=== PATIENT | male | born 1960 | race Caucasian/White ===

== ENCOUNTER 2016-06-17 11:42 | Inpatient (IN) | payer OTHER ==
[2016-06-17 12:37] VITALS: BMI 21.1
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
[2016-06-17] MEDS ORDERED: guaiFENesin/D-METHORPHAN HB 10 ML UNIT-DOSE CUPS PO PRN (15:10)
[2016-06-17] MEDS ORDERED: MAGNESIUM HYDROX 2400MG/30ML ORAL SUSPENSION 30 ML CUP PO PRN (15:10)
[2016-06-17] MEDS ORDERED: LOPERAMIDE HCL 2 MG CAPSULE PO PRN (15:10)
[2016-06-17] MEDS ORDERED: MENTHOL/PHENOL 1 EACH UD MM PRN (15:10)
[2016-06-17] MEDS ORDERED: NICOTINE POLACRILEX 4 MG GUM BC PRN (15:10)
[2016-06-17] MEDS ORDERED: P-EPHED 60MG/TRIPROLIDI 2.5MG TABLET PO PRN (15:10)
[2016-06-17] MEDS ORDERED: MAG HYDROX/AL HYDROX/SIMETH 30 ML UNIT-DOSE CUP PO PRN (15:10)
[2016-06-17] MEDS ORDERED: MAGNESIUM CITRATE 300 ML BOTTLE PO PRN (15:10)
[2016-06-17] MEDS ORDERED: IBUPROFEN 400 MG TABLET (FP) PO PRN (15:10)
[2016-06-17] MEDS ORDERED: ACETAMINOPHEN 325 MG TABLET (FP) PO PRN (15:10)
[2016-06-17] MEDS ORDERED: hydrOXYzine PAMOATE 25 MG CAPSULE (FP) PO PRN (15:10)
[2016-06-17] MEDS ORDERED: METHADONE HCL 10 MG TABLET (FOR DETOX USE ONLY) PO ONE ×2 (16:30→23:00)
[2016-06-17] MEDS ORDERED: METHADONE HCL 10 MG TABLET (FOR DETOX USE ONLY) ONE (18:33)
[2016-06-17] MEDS: diazePAM 5 MG TABLET PO PRN (18:34)
[2016-06-17] MEDS: NICOTINE 21 MG/24 HOURS TOPICAL PATCH TD SCH (18:36)
[2016-06-17 19:25] LABS: URINE APPEARANCE CLEAR; URINE BILIRUBIN NEGATIVE (NEGATIVE); URINE BLOOD NEGATIVE (NEGATIVE); URINE COLOR YELLOW; URINE GLUCOSE (UA) NEGATIVE (NEGATIVE); URINE KETONE NEGATIVE (NEGATIVE); URINE LEUK ESTERASE NEGATIVE (NEGATIVE); URINE NITRITE NEGATIVE (NEGATIVE); URINE PROTEIN NEGATIVE (NEGATIVE); URINE UROBILINOGEN NEGATIVE E.U./dl (0.2-1.0)
[2016-06-17] MEDS: THIAMINE HCL 100 MG TABLET (FP) PO SCH (22:29)
--- NOTE | 2016-06-18 09:28 | CONSULT ---
[facility] Psychiatric Consult - Data Date of interview: 06/18/16 Admission source: [facility] Identifying data: This is 55 years old male with history of Paranoid Schizophrenia , history of p[sychiatric hospitalizations intoxicated with: Opioids, Crack, Alcohol, Cannabis and Nicotine Substance Abuse History: - Smoking Cessation. Smoking history: Current every day smoker. Have you smoked in the past 12 months: Yes. Aproximately how many cigarettes per day: 20. Cigars Per Day: 0. Hx Chewing Tobacco Use: No. Initiated information on smoking cessation: Yes. 'Breaking Loose' booklet given : 06/17/16. - Substance & Tx. History. Hx Alcohol Use: Yes (SAYS HE IS NOT DRINKING NOW). Hx Substance Use: Yes (HEROIN/COCAINE/MARIJUANA). - Substances Abused. Crack. Route: Smoking. Frequency: Daily. Amount used: $100. Age of first use: 16. Date of Last Use: 06/16/16. Heroin. Route: Inhalation. Frequency: 1-2 times per week. Amount used: 1 bag. Age of first use: 18. Date of Last Use: 06/16/16. Percocet. Route: Oral. Frequency: Daily. Amount used: 3 tabs. (10-325 mg.). Age of first use: 54. Date of Last Use: Medical History: HepC+, HIV, Weight loss, Liver Cancer history Psychiatric History: Patient reports history of Paranoid Schizophrenia, non- compliance with psychiatric medications with most recent psychiatric admission on 2015 at [facility], reports currently on Monthly injections of Haldol Decanoate 100mg IM WITH LAST INJECTION ON: 05/18/2016 Physical/Sexual Abuse/Trauma History: Denies Additional Comment: Monthly injections of Haldol Decanoate 100mg IM WITH LAST INJECTION ON: 05/18/2016 Mental Status Exam - Mental Status Exam Alert and Oriented to: Person Cognitive Function: Fair Patient Appearance: Unkempt Mood: Suspicious Affect: Constricted Patient Behavior: Cooperative Speech Pattern: Appropriate Voice Loudness: Mildly Soft/Quiet Thought Process: Circumstantial, Goal Oriented Thought Disorder: Being Controlled Hallucinations: Denies Suicidal Ideation: Denies Homicidal Ideation: Denies Insight/Judgement: Fair Sleep: Difficulty falling asleep Appetite: Weight loss Muscle strength/Tone: Normal Gait/Station: Shuffling Additional Comments: Monthly injections of Haldol Decanoate 100mg IM WITH LAST INJECTION ON: 05/18/2016 Psychiatric Findings - Problem List ([place] 1, 2,3) (1) Cannabis dependence, uncomplicated Current Visit: Yes Status: Acute (2) Cocaine dependence, uncomplicated Current Visit: Yes Status: Acute (3) Nicotine dependence Current Visit: Yes Status: Acute Qualifiers: Nicotine product type: cigarettes Substance use status: in withdrawal Qualified Code(s): F17.213 - Nicotine dependence, cigarettes, with withdrawal (4) Opioid dependence with withdrawal Current Visit: Yes Status: Acute (5) Opioid dependence Current Visit: No Status: Acute (6) Other and unspecified alcohol dependence, episodic drinking behavior Current Visit: No Status: Acute (7) Paranoid schizophrenia Current Visit: No Status: Chronic - Initial Treatment Plan Initial Treatment Plan: Haldol decanoate 100mg IM STAT
[2016-06-18] MEDS ORDERED: METHADONE HCL 10 MG TABLET (FOR DETOX USE ONLY) PO ONE (10:00)
[2016-06-18] MEDS ORDERED: HALOPERIDOL DECANOATE 100 MG/ML IM STA (10:30)
[2016-06-18 10:32] LABS: MCH 31.3 pg (25.7-33.7); MCHC 33.4 g/dl (32.0-35.9); MEAN CELL VOLUME 93.7 fl (80-96); MEAN PLT VOLUME 9.1 fl (7.5-11.1); PLATELET COUNT 64 K/MM3 (134-434); RDW 14.6 % (11.9-15.9); WHITE BLOOD COUNT 6.1 K/mm3 (4.0-10.0)
[2016-06-18] MEDS: NICOTINE 21 MG/24 HOURS TOPICAL PATCH TD SCH (10:36)
[2016-06-18] MEDS: PRENATAL VITAMINS W/ FOLIC ACID TABLET (FP) PO SCH (10:36)
[2016-06-18] MEDS: diazePAM 5 MG TABLET PO PRN ×2 (10:38→22:31)
[2016-06-18 10:52] LABS: ALBUMIN 4.1 g/dl (3.4-5.0); ALK PHOS 164 U/L (45-117); ANION GAP 10 (8-16); BILIRUBIN,TOTAL 1.3 mg/dL (0.2-1.0); CALCIUM 9.3 mg/dL (8.5-10.1); CO2 19 mmol/L (21-32); GLUCOSE,RANDOM 94 mg/dL (74-106); SGOT/AST 43 U/L (15-37); SGPT/ALT 38 U/L (12-78)
--- NOTE | 2016-06-18 12:16 | PN ---
BHS COWS - Scale Resting Pulse: 1= NC 81-100 Sweatin=Flushed/Facial Moisture Restless Observation: 1= Difficult to Sit Still Pupil Size: 0= Normal to Room Light Bone or Joint Aches: 2= Severe Diffuse Aches Runny Nose/ Eye Tearin= Nasal Congestion GI Upset > 30mins: 0= None Tremor Observation of Outstretched Hands: 1= Tremor [place], Not Seen Yawning Observation: 2= >3x During Session Anxiety or Irritability: 1=Feels Anxious/Irritable Goose Flesh Skin: 3=Piloerection COWS Score: 14 BHS Progress Note (SOAP) Subjective: sweats interrupted sleep agitation irritable body aches Objective: 06/18/16 12:15 Vital Signs Temperature 98.4 F 06/18/16 09:20 Pulse Rate 89 06/18/16 09:20 Respiratory Rate 16 06/18/16 09:20 Blood Pressure 110/72 06/18/16 09:20 O2 Sat by Pulse Oximetry (%) Laboratory Tests 06/17/16 06/18/16 06/18/16 14:00 06:00 06:00 WBC 6.1 RBC 5.22 Hgb 16.4 D Hct 49.0 D MCV 93.7 MCHC 33.4 RDW 14.6 Plt Count 64 L MPV 9.1 Sodium 139 Potassium 3.6 Chloride 110 H Carbon Dioxide 19 L D Anion Gap 10 BUN 12 D Creatinine 1.0 D Creat Clearance w eGFR > 60 Random Glucose 94 Calcium 9.3 Total Bilirubin 1.3 H D AST 43 H ALT 38 Alkaline Phosphatase 164 H Total Protein 8.0 D Albumin 4.1 D Urine Color Yellow Urine Appearance Clear Urine pH 8.0 D Ur Specific [place] 1.011 Urine Protein Negative Urine Glucose (UA) Negative Urine Ketones Negative Urine Blood Negative Urine Nitrite Negative Urine Bilirubin Negative Urine Urobilinogen Negative Ur Leukocyte Esterase Negative RPR Titer 06/18/16 06:00 WBC RBC Hgb Hct MCV MCHC RDW Plt Count MPV Sodium Potassium Chloride Carbon Dioxide Anion Gap BUN Creatinine Creat Clearance w eGFR Random Glucose Calcium Total Bilirubin AST ALT Alkaline Phosphatase Total Protein Albumin Urine Color Urine Appearance Urine pH Ur Specific [place] Urine Protein Urine Glucose (UA) Urine Ketones Urine Blood Urine Nitrite Urine Bilirubin Urine Urobilinogen Ur Leukocyte Esterase RPR Titer Nonreactive awake/alert ambulating no acute distress Assessment: 06/18/16 12:16 withdrawal sx Plan: continue detox increase fluids motrin/tylenol prn
[2016-06-18] MEDS: EMTRICITAB/RILPIVIRINE/TENOFOV 1 EACH TABLET PO SCH (14:43)
--- NOTE | 2016-06-18 16:18 | EKG ---
Test Reason : Blood Pressure : / mmHG Vent. Rate : 074 BPM Atrial Rate : 074 BPM P-R Int : 158 ms QRS Dur : 086 ms QT Int : 380 ms P-R-T Axes : 059 076 061 degrees QTc Int : 421 ms NORMAL SINUS RHYTHM NORMAL ECG NO PREVIOUS ECGS AVAILABLE Confirmed by MARLIN FRANKS MD ([id number]) on 06/18/2016 4:18:08 PM Referred By: Confirmed By:MARLIN FRANKS MD
[2016-06-18] MEDS: THIAMINE HCL 100 MG TABLET (FP) PO SCH (22:31)
[2016-06-19] MEDS: EMTRICITAB/RILPIVIRINE/TENOFOV 1 EACH TABLET PO SCH (09:10)
[2016-06-19] MEDS ORDERED: METHADONE HCL 5 MG TABLET (FOR DETOX USE ONLY) PO ONE (10:00)
[2016-06-19] MEDS: diazePAM 5 MG TABLET PO PRN (10:30)
[2016-06-19] MEDS: PRENATAL VITAMINS W/ FOLIC ACID TABLET (FP) PO SCH (10:30)
[2016-06-19] MEDS: NICOTINE 21 MG/24 HOURS TOPICAL PATCH TD SCH (10:31)
--- NOTE | 2016-06-19 10:52 | PN ---
BHS COWS - Scale Resting Pulse: 1= NC 81-100 Sweatin=Flushed/Facial Moisture Restless Observation: 1= Difficult to Sit Still Pupil Size: 2= Moderately Dilated Bone or Joint Aches: 1= Mild Discomfort Runny Nose/ Eye Tearin= Runny Nose/Eyes GI Upset > 30mins: 1= Stomach Cramp Tremor Observation of Outstretched Hands: 2= Slight Tremor Visible Yawning Observation: 1= 1-2x During Session Anxiety or Irritability: 2=Irritable/Anxious Goose Flesh Skin: 0=Smooth Skin COWS Score: 15 S Progress Note (SOAP) Objective: 06/19/16 10:51 Vital Signs - 24 hr 06/18/16 06/18/16 06/18/16 13:56 18:23 21:53 Temperature 97.7 F 98.1 F 98.1 F Pulse Rate 92 H 68 98 H Respiratory 18 16 18 Rate Blood Pressure 105/70 95/56 116/73 06/19/16 06/19/16 06/19/16 00:30 03:30 06:00 Temperature 98.2 F Pulse Rate 109 H Respiratory 18 18 18 Rate Blood Pressure 93/60 06/19/16 10:20 Temperature 98 F Pulse Rate 91 H Respiratory 20 Rate Blood Pressure 111/66 Abnormal Lab Results 06/18/16 06:00 Carbon Dioxide 19 L D Total Bilirubin 1.3 H D AST 43 H Alkaline Phosphatase 164 H Laboratory Tests 06/17/16 06/18/16 06/18/16 14:00 06:00 06:00 WBC 6.1 RBC 5.22 Hgb 16.4 D Hct 49.0 D MCV 93.7 MCHC 33.4 RDW 14.6 Plt Count 64 L MPV 9.1 Sodium 139 Potassium 3.6 Chloride 110 H Carbon Dioxide 19 L D Anion Gap 10 BUN 12 D Creatinine 1.0 D Creat Clearance w eGFR > 60 Random Glucose 94 Calcium 9.3 Total Bilirubin 1.3 H D AST 43 H ALT 38 Alkaline Phosphatase 164 H Total Protein 8.0 D Albumin 4.1 D Urine Color Yellow Urine Appearance Clear Urine pH 8.0 D Ur Specific [place] 1.011 Urine Protein Negative Urine Glucose (UA) Negative Urine Ketones Negative Urine Blood Negative Urine Nitrite Negative Urine Bilirubin Negative Urine Urobilinogen Negative Ur Leukocyte Esterase Negative RPR Titer 06/18/16 06:00 WBC RBC Hgb Hct MCV MCHC RDW Plt Count MPV Sodium Potassium Chloride Carbon Dioxide Anion Gap BUN Creatinine Creat Clearance w eGFR Random Glucose Calcium Total Bilirubin AST ALT Alkaline Phosphatase Total Protein Albumin Urine Color Urine Appearance Urine pH Ur Specific [place] Urine Protein Urine Glucose (UA) Urine Ketones Urine Blood Urine Nitrite Urine Bilirubin Urine Urobilinogen Ur Leukocyte Esterase RPR Titer Nonreactive Assessment: 06/19/16 10:52 ONGOING WITHDRAWAL SYMPTOMS Plan: CONTINUE DETOX PROTOCOL
[2016-06-19] MEDS: diphenhydrAMINE HCL 50 MG CAPSULE PO PRN (22:20)
[2016-06-19] MEDS: THIAMINE HCL 100 MG TABLET (FP) PO SCH (22:20)
[2016-06-20] MEDS: EMTRICITAB/RILPIVIRINE/TENOFOV 1 EACH TABLET PO SCH (09:11)
[2016-06-20] MEDS ORDERED: METHADONE HCL 5 MG TABLET (FOR DETOX USE ONLY) PO ONE (10:00)
--- NOTE | 2016-06-20 10:46 | PN ---
BHS Progress Note (SOAP) Subjective: ALERT,IRRITABLE,ANXIOUS,INTERRUPTED SLEEP,PAIN IN THE BODY Objective: 06/20/16 10:45 Vital Signs Temperature 98.1 F 06/20/16 09:50 Pulse Rate 72 06/20/16 09:50 Respiratory Rate 16 06/20/16 09:50 Blood Pressure 122/81 06/20/16 09:50 O2 Sat by Pulse Oximetry (%) Assessment: 06/20/16 10:45 WITHDRAWAL SYMPTOM Plan: CONTINUE DETOX
[2016-06-20] MEDS: PRENATAL VITAMINS W/ FOLIC ACID TABLET (FP) PO SCH (10:53)
[2016-06-20] MEDS: diazePAM 5 MG TABLET PO PRN (10:54)
[2016-06-20] MEDS: NICOTINE 21 MG/24 HOURS TOPICAL PATCH TD SCH (10:54)
[2016-06-20] MEDS: THIAMINE HCL 100 MG TABLET (FP) PO SCH (22:55)
[2016-06-21] MEDS: EMTRICITAB/RILPIVIRINE/TENOFOV 1 EACH TABLET PO SCH (07:25)
[2016-06-21] MEDS ORDERED: METHADONE HCL 10 MG TABLET (FOR DETOX USE ONLY) PO ONE (10:00)
[2016-06-21] MEDS: NICOTINE 21 MG/24 HOURS TOPICAL PATCH TD SCH (10:21)
[2016-06-21] MEDS: PRENATAL VITAMINS W/ FOLIC ACID TABLET (FP) PO SCH (10:36)
--- NOTE | 2016-06-21 11:23 | PN ---
BHS Progress Note (SOAP) Subjective: alert,irritable,anxious,interrupted sleep,pain in the body and back Objective: 06/21/16 11:21 Vital Signs Temperature 96.4 F L 06/21/16 09:26 Pulse Rate 92 H 06/21/16 09:26 Respiratory Rate 18 06/21/16 09:26 Blood Pressure 102/58 06/21/16 09:26 O2 Sat by Pulse Oximetry (%) Assessment: 06/21/16 11:22 withdrawal symptom Plan: continue detox,discharge in am
[2016-06-21] MEDS: diphenhydrAMINE HCL 50 MG CAPSULE PO PRN (22:26)
[2016-06-21] MEDS: THIAMINE HCL 100 MG TABLET (FP) PO SCH (22:26)
[2016-06-22] MEDS ORDERED: METHADONE HCL 5 MG TABLET (FOR DETOX USE ONLY) PO ONE (06:00)
[2016-06-22] MEDS: EMTRICITAB/RILPIVIRINE/TENOFOV 1 EACH TABLET PO SCH (07:22)
--- NOTE | 2016-06-22 07:46 | PN ---
S Progress Note (SOAP) Subjective: ALERT,NO COMPLAINT Objective: 06/22/16 07:44 Vital Signs Temperature 98.1 F 06/22/16 06:33 Pulse Rate 65 06/22/16 06:33 Respiratory Rate 16 06/22/16 06:33 Blood Pressure 95/60 06/22/16 06:33 O2 Sat by Pulse Oximetry (%) Assessment: 06/22/16 07:45 DETOX COMPLETED.NO WITHDRAWAL SYMPTOM Plan: DISCHARGE TODAY,FOLLOW UP WITH AFTER CARE PROGRAM ARRANGEMENT
--- NOTE | 2016-06-22 07:49 | DS ---
[facility] Detox Discharge Summary Admission Date: 06/17/16 Discharge Date: 06/22/16 - History Present History: Cannabis Dependence, Cocaine Dependence, Opioid Dependence Additional Comments: FOLLOW UP WITH AFTER CARE PROGRAM ARRANGEMENT AND PMD FOR MEDICAL PROBLEM Pertinent Past History: NICOTINE DEPENDENCE WEIGHT LOSS CLUBBED FINGERS HIV HEPATITIS C PARANOID SCHIZOPHRENIA - Physical Exam Results Vital Signs: Vital Signs Temperature 98.1 F 06/22/16 06:33 Pulse Rate 65 06/22/16 06:33 Respiratory Rate 16 06/22/16 06:33 Blood Pressure 95/60 06/22/16 06:33 O2 Sat by Pulse Oximetry (%) Pertinent Admission Physical Exam Findings: WITHDRAWAL SYMPTOM - Treatment Hospital Course: Detox Protocol Followed, Detoxed Safely, Responded well, Discharged Condition Good, Rehab Referral Accepted Patient has Accepted a Rehab Referral to: [facility] - Medication Discharge Medications: Ambulatory Orders Emtricitab/Rilpivirine/Tenofov [Complera -] 1 each PO DAILY 01/01/15 Haloperidol Decanoate [Haldol Decanoate 100] 100 mg IM MONTHLY 01/17/15 Cyclobenzaprine HCl [Flexeril -] 10 mg PO Q12H 01/14/16 Gabapentin [Neurontin -] 300 mg PO Q12H 01/14/16 - AMA Did Patient Leave Against Medical Advice: No
[2016-06-22] MEDS: PRENATAL VITAMINS W/ FOLIC ACID TABLET (FP) PO SCH (10:54)
[2016-06-22] MEDS: NICOTINE 21 MG/24 HOURS TOPICAL PATCH TD SCH (10:55)
[2016-06-22 11:20] VITALS: BP 102/63; PULSE 77; TEMP 97.3
== END 2016-06-22 12:39 | disposition home or self-care (01) | DRG 773 ==
LOC: YASAS 11:42 → Y6N 14:18
PROVIDERS: ADMIT Internal Medicine Addiction Medicine; ATTEND Internal Medicine Addiction Medicine
PROC: HZ2ZZZZ Detoxification Services for Substance Abuse Treatment (ICD-10-PCS; principal; 2016-06-17)
DX: F11.23 Opioid dependence with withdrawal (principal); F14.20 Cocaine dependence, uncomplicated; F12.20 Cannabis dependence, uncomplicated; F17.213 Nicotine dependence, cigarettes, with withdrawal; F20.0 Paranoid schizophrenia; B18.2 Chronic viral hepatitis C; Z21 Asymptomatic human immunodeficiency virus [HIV] infection status; R68.3 Clubbing of fingers; Z87.898 Personal history of other specified conditions; Z96.641 Presence of right artificial hip joint; Z85.05 Personal history of malignant neoplasm of liver
CPT/HCPCS: 36415; 80053; 81003; 85027; 86593; 93005; 93010

== ENCOUNTER 2016-06-26 10:53 | Inpatient (IN) | payer OTHER ==
[2016-06-26 11:56] VITALS: BMI 21.2
--- NOTE | 2016-06-26 13:07 | HP ---
[facility] Rehab Assess/Revision - Admission History Admitted to Rehab from: [facility] [place] (COMPLETED DETOX ON 6 06/17/16 TO 06/22/16 ) Date of Admission to Rehab: 06/26/16 - Vital signs Vital Signs: Vital Signs Period Temp Pulse Resp BP Sys/Calix Pulse Ox Last 24 Hr 95.7 F 84 18 115/69 - Findings Detox History & Physical reviewed: Yes Concur with findings: Yes Comments/Additional Findings: PT RETURNED TODAY TO FOLLOW UP WITH REHAB RECOMMENDATION. ALERT O X 3. NO ACUT DISTRESS. PLAN: ADMIT TO REHAB
[2016-06-26] MEDS ORDERED: MENTHOL/PHENOL 1 EACH UD MM PRN (13:08)
[2016-06-26] MEDS ORDERED: diphenhydrAMINE HCL 50 MG CAPSULE PO PRN (13:08)
[2016-06-26] MEDS ORDERED: MAGNESIUM HYDROX 2400MG/30ML ORAL SUSPENSION 30 ML CUP PO PRN (13:08)
[2016-06-26] MEDS ORDERED: NICOTINE POLACRILEX 2 MG GUM BUC PRN (13:08)
[2016-06-26] MEDS ORDERED: P-EPHED 60MG/TRIPROLIDI 2.5MG TABLET PO PRN (13:08)
[2016-06-26] MEDS ORDERED: LOPERAMIDE HCL 2 MG CAPSULE PO PRN (13:08)
[2016-06-26] MEDS ORDERED: MAGNESIUM CITRATE 300 ML BOTTLE PO PRN (13:08)
[2016-06-26] MEDS ORDERED: hydrOXYzine PAMOATE 25 MG CAPSULE (FP) PO PRN (13:08)
[2016-06-26] MEDS ORDERED: MAG HYDROX/AL HYDROX/SIMETH 30 ML UNIT-DOSE CUP PO PRN (13:08)
[2016-06-26] MEDS ORDERED: guaiFENesin/D-METHORPHAN HB 10 ML UNIT-DOSE CUPS PO PRN (13:08)
[2016-06-26] MEDS ORDERED: ACETAMINOPHEN 325 MG TABLET (FP) PO PRN (13:08)
[2016-06-26] MEDS ORDERED: CYCLOBENZAPRINE HCL 10 MG TABLET (FP) PO PRN (13:11)
[2016-06-26] MEDS ORDERED: GABAPENTIN 100 MG CAPSULE (FP) PO SCH (14:19)
[2016-06-26] MEDS ORDERED: GABAPENTIN 300 MG CAPSULE (FP) PO SCH (14:19)
[2016-06-26 16:29] LABS: URINE APPEARANCE SLCLOUDY; URINE BILIRUBIN NEGATIVE (NEGATIVE); URINE BLOOD NEGATIVE (NEGATIVE); URINE COLOR YELLOW; URINE GLUCOSE (UA) NEGATIVE (NEGATIVE); URINE KETONE NEGATIVE (NEGATIVE); URINE NITRITE NEGATIVE (NEGATIVE); URINE PROTEIN NEGATIVE (NEGATIVE); URINE UROBILINOGEN NEGATIVE E.U./dl (0.2-1.0)
[2016-06-26 16:30] LABS: URINE LEUK ESTERASE 1+ (NEGATIVE)
[2016-06-26 16:46] LABS: URINE BACTERIA MANY /hpf (NONE SEEN); URINE RBC 4 /hpf (0-3); URINE WBC 13 /hpf (3-5); YEAST RARE
[2016-06-26] MEDS: NICOTINE 14 MG/24 HOURS TOPICAL PATCH TD SCH (20:18)
[2016-06-26] MEDS: EMTRICITAB/RILPIVIRINE/TENOFOV 1 EACH TABLET PO SCH (20:18)
[2016-06-26] MEDS: THIAMINE HCL 100 MG TABLET (FP) PO SCH (21:54)
[2016-06-26] MEDS: GABAPENTIN 300 MG CAPSULE (FP) PO SCH (22:01)
[2016-06-27] MEDS: EMTRICITAB/RILPIVIRINE/TENOFOV 1 EACH TABLET PO SCH (07:01)
[2016-06-27] MEDS: GABAPENTIN 300 MG CAPSULE (FP) PO SCH ×2 (09:49→22:07)
[2016-06-27] MEDS: PRENATAL VITAMINS W/ FOLIC ACID TABLET (FP) PO SCH (09:50)
[2016-06-27] MEDS: NICOTINE 14 MG/24 HOURS TOPICAL PATCH TD SCH (09:50)
[2016-06-27] MEDS: THIAMINE HCL 100 MG TABLET (FP) PO SCH (22:07)
[2016-06-28] MEDS: EMTRICITAB/RILPIVIRINE/TENOFOV 1 EACH TABLET PO SCH (07:09)
[2016-06-28] MEDS: NICOTINE 14 MG/24 HOURS TOPICAL PATCH TD SCH (09:53)
[2016-06-28] MEDS: GABAPENTIN 300 MG CAPSULE (FP) PO SCH ×2 (09:53→21:10)
[2016-06-28] MEDS: PRENATAL VITAMINS W/ FOLIC ACID TABLET (FP) PO SCH (09:53)
[2016-06-28] MEDS: THIAMINE HCL 100 MG TABLET (FP) PO SCH (21:10)
[2016-06-29] MEDS: EMTRICITAB/RILPIVIRINE/TENOFOV 1 EACH TABLET PO SCH (07:20)
[2016-06-29] MEDS: NICOTINE 14 MG/24 HOURS TOPICAL PATCH TD SCH (10:40)
[2016-06-29] MEDS: PRENATAL VITAMINS W/ FOLIC ACID TABLET (FP) PO SCH (10:40)
[2016-06-29] MEDS: GABAPENTIN 300 MG CAPSULE (FP) PO SCH ×2 (10:40→21:47)
--- NOTE | 2016-06-29 11:05 | HP ---
Psychiatrist Admission - Data Date of interview: 06/29/16 Admission source: [facility] Identifying data: Readmission to [facility] ([address] [facility] [address] this time) for this 55 y/o male seeking rehabilitation treatment for heroin,cocaine (crack), alcohol,nicotine and marijuana dependence.Patient is single,a father of one, domiciled,unemployed and supported on SSI benefits. Medical History: Hepatitis C (treated in 2014),liver disease,HIV infection since 2000 (on ART medications),past treatment for gonorrhea and a history of right hip replacement in 2010. Psychiatric History: Extensive history of mental illness (onset of psychiatric disturbances: age 27).Diagnosed with paranoid schizophrenia and maintained on depot haloperidol (100 mg im every month) at the [facility].Mr Downey reports that he has kept his appointment at [facility] on (date of most recent injection of haldol decanoate).Patient denies history of suicide attempts. Physical/Sexual Abuse/Trauma History: Patient denies. Vital Signs: Vital Signs - 24 hr 06/29/16 06/29/16 00:30 06:49 Temperature 99 F Pulse Rate 80 Respiratory 18 18 Rate Blood Pressure 130/85 Allergies/Adverse Reactions: Allergies Allergy/AdvReac Type Severity Reaction Status Date / Time No Known Allergies Allergy Verified 06/26/16 13:06 - Substance Abuse/Tx History Hx Alcohol Use: Yes (Started using alcohol at age 26.Drinks rum Bacardi.One pint on 06/16/16.) Hx Substance Use: Yes Substance Use Type: Alcohol, Cocaine (started using crack at age 16.Spends an average of 100 dollars/day.Last use :06/16/16), Heroin (Snorting.Started using at age 18.Uses one bag/day.Last use :06/16/16), Marijuana (onset of abuse :age 15.one joint every two weeks.Last use :06/16/16.) Hx Substance Use Treatment: Yes - Admission Criteria Previous failed treatment: Yes Poor recovery environment: Yes Comorbidities: Yes Lacks judgement: Yes Mental Status Exam - Mental Status Exam Alert and Oriented to: Time, Place, Person Cognitive Function: Good Patient Appearance: Well Groomed Mood: Hopeful, Euthymic Affect: Appropriate, Normal Range Patient Behavior: Appropriate, Cooperative Speech Pattern: Clear Voice Loudness: Normal Thought Process: Goal Oriented Thought Disorder: Not Present Hallucinations: Denies Suicidal Ideation: Denies Homicidal Ideation: Denies Insight/Judgement: Fair Sleep: Well Appetite: Good Muscle strength/Tone: Normal Gait/Station: Normal Psychiatric Findings - Problem List ([place] 1, 2,3) (1) Alcohol dependence, continuous Current Visit: Yes Status: Acute (2) Cannabis dependence, uncomplicated Current Visit: Yes Status: Acute (3) Cocaine dependence Current Visit: Yes Status: Acute (4) Heroin dependence Current Visit: Yes Status: Acute (5) Nicotine dependence Current Visit: Yes Status: Acute Qualifiers: Nicotine product type: cigarettes Substance use status: in withdrawal Qualified Code(s): F17.213 - Nicotine dependence, cigarettes, with withdrawal (6) Paranoid schizophrenia Current Visit: Yes Status: Chronic (7) Cancer of liver Current Visit: Yes Status: Chronic (8) Clubbed fingers Current Visit: Yes Status: Chronic (9) HIV (human immunodeficiency virus infection) Current Visit: Yes Status: Chronic (10) Hepatitis C Current Visit: Yes Status: Chronic Qualifiers: Viral hepatitis chronicity: chronic Hepatic coma status: without hepatic coma Qualified Code(s): B18.2 - Chronic viral hepatitis C - Initial Treatment Plan Initial Treatment Plan: Psychoeducation.Patient insists that he got his injection of 100 mg IM of haloperidol decanoate on 06/23/16 at the [facility].He is a good and reliable historian.Monitor daily progress.
[2016-06-29] MEDS: THIAMINE HCL 100 MG TABLET (FP) PO SCH (21:46)
[2016-06-29] MEDS: IBUPROFEN 400 MG TABLET (FP) PO PRN (21:58)
[2016-06-30] MEDS: EMTRICITAB/RILPIVIRINE/TENOFOV 1 EACH TABLET PO SCH (07:47)
[2016-06-30 07:48] VITALS: BP 126/79; PULSE 88; TEMP 98.2
[2016-06-30] MEDS: IBUPROFEN 400 MG TABLET (FP) PO PRN (09:56)
[2016-06-30] MEDS: PRENATAL VITAMINS W/ FOLIC ACID TABLET (FP) PO SCH (09:56)
[2016-06-30] MEDS: NICOTINE 14 MG/24 HOURS TOPICAL PATCH TD SCH (09:57)
[2016-06-30] MEDS: GABAPENTIN 300 MG CAPSULE (FP) PO SCH (10:43)
--- NOTE | 2016-06-30 13:32 | PN ---
Psychiatric Progress Note Vital Signs: Vital Signs Period Temp Pulse Resp BP Sys/Calix Pulse Ox Last 24 Hr 98.2 F 88 16-20 126/79 Date of Session: 06/30/16 Chief Complaint:: Psychiatrist Discharge Note(AMA) HPI: Patient addressing Opoid and Cocaine Dependence comorbid with Nicotine Dependence and Paranoid Schizophrenia ROS: HIV+, Hepatitis C were medically managed Current Medications: Active Medications Generic Name Dose Route Start Last Admin Trade Name Freq PRN Reason Stop Dose Admin Acetaminophen 650 mg 06/26/16 13:08 06/29/16 06:31 Tylenol - PO 650 mg Q4H PRN Administration PAIN Al Hydroxide/Mg Hydroxide 30 ml 06/26/16 13:08 Mylanta Oral Suspension - PO Q6H PRN DYSPEPSIA Cyclobenzaprine HCl 10 mg 06/26/16 13:11 Flexeril - PO Q12H PRN PAIN Diphenhydramine HCl 50 mg 06/26/16 13:08 Benadryl - PO HSMR1 PRN INSOMNIA Emtricitabine/Rilpivirine/Tenofovir 1 each 06/26/16 13:15 06/30/16 07:47 Complera - PO 1 each DAILY@0800 MARILIN Administration Eucalyptus/Menthol/Phenol/Sorbitol 1 each 06/26/16 13:08 Cepastat Lozenge - MM Q4H PRN SORE THROAT Gabapentin 300 mg 06/26/16 22:00 06/30/16 10:43 Neurontin - PO Not Given BID MARILIN Guaifenesin 10 ml 06/26/16 13:08 Robitussin Dm - PO Q6H PRN COUGH Hydroxyzine Pamoate 25 mg 06/26/16 13:08 Vistaril - PO Q4H PRN AGITATION Ibuprofen 400 mg 06/26/16 13:08 06/30/16 09:56 Motrin - PO 400 mg Q6H PRN Administration SEVERE PAIN Loperamide HCl 4 mg 06/26/16 13:08 Imodium - PO Q6H PRN DIARRHEA Magnesium Citrate 300 ml 06/26/16 13:08 Citroma - PO Q48H PRN CONSTIPATION Magnesium Hydroxide 30 ml 06/26/16 13:08 Milk Of Magnesia - PO DAILY PRN CONSTIPATION Nicotine 14 mg 06/26/16 14:21 06/30/16 09:57 Nicoderm Patch - TD 14 mg DAILY MARILIN Administration Nicotine Polacrilex 2 mg 06/26/16 13:08 Nicorette Gum - BUC Q2H PRN NICOTINE REPLACEMENT RX Multivit/Folic Acid/Iron 1 tab 06/27/16 10:00 06/30/16 09:56 Vitamins (Sjr) - PO 1 tab DAILY MARILIN Administration Pseudoephedrine/Triprolidine 1 combo 06/26/16 13:08 Actifed - PO TID PRN NASAL CONGESTION Thiamine HCl 100 mg 06/26/16 22:00 06/29/16 21:46 Vitamin B1 - PO 100 mg HS MARILIN Administration Current Side Effect: No Lab tests ordered: Yes Lab tests reviewed: Yes Provider note:: Patient requests to leave against medical advice Citing "I need air". Told investment underwriter that he came here just to relax. He said that he is going back to his outpatient program at [facility]. He has history of Paranoid Schizophrenia and takes Haldol Decanoate 100 mg IM q monthly. He receiced his las injection on 06/23/16. He is determined to leave [place] despite encouragement to stay and complete this program. He is stable for discharge against medical advice Total face to face time:: 25 Mental Status Exam - Mental Status Exam Alert and Oriented to: Time, Place, Person Cognitive Function: Fair Patient Appearance: Well Groomed Mood: Hopeful, Euthymic Affect: Blunted Patient Behavior: Cooperative Speech Pattern: Clear, Artificially Ventilated Thought Process: Intact Thought Disorder: Not Present Hallucinations: Denies Suicidal Ideation: Denies Homicidal Ideation: Denies Insight/Judgement: Fair Sleep: Fair Appetite: Good Muscle strength/Tone: Normal Gait/Station: Normal Psychiatric Treatment Plan - Problem List (1) Opioid dependence with withdrawal Current Visit: No (2) Cocaine dependence Current Visit: Yes (3) Nicotine dependence Current Visit: Yes Qualifiers: Nicotine product type: cigarettes Substance use status: in withdrawal Qualified Code(s): F17.213 - Nicotine dependence, cigarettes, with withdrawal (4) Paranoid schizophrenia Current Visit: Yes (5) Cancer of liver Current Visit: Yes (6) Clubbed fingers Current Visit: Yes (7) HIV (human immunodeficiency virus infection) Current Visit: Yes (8) HIV disease Current Visit: No (9) Tardive dyskinesia Current Visit: No Initial treatment plan: Patient is discharged AM and he is going back to [facility] for outpatient treatment
== END 2016-06-30 13:49 | disposition left against medical advice (07) | DRG 770 ==
LOC: YASAS 10:53 → Y3W 13:55
PROVIDERS: ADMIT Psychiatry & Neurology Psychiatry; ATTEND Psychiatry & Neurology Psychiatry
PROC: HZ42ZZZ Group Counseling for Substance Abuse Treatment, Cognitive-Behavioral (ICD-10-PCS; principal; 2016-06-26)
DX: F11.20 Opioid dependence, uncomplicated (principal); F14.20 Cocaine dependence, uncomplicated; F12.20 Cannabis dependence, uncomplicated; F17.210 Nicotine dependence, cigarettes, uncomplicated; F20.0 Paranoid schizophrenia; Z21 Asymptomatic human immunodeficiency virus [HIV] infection status; B18.2 Chronic viral hepatitis C; Z85.05 Personal history of malignant neoplasm of liver; R68.3 Clubbing of fingers; G24.01 Drug induced subacute dyskinesia
CPT/HCPCS: 81003; 81015

== ENCOUNTER 2016-08-25 16:24 | Inpatient (IN) | payer OTHER ==
[2016-08-25 18:58] VITALS: BMI 20.3
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
[2016-08-25] MEDS ORDERED: guaiFENesin/D-METHORPHAN HB 10 ML UNIT-DOSE CUPS PO PRN (20:22)
[2016-08-25] MEDS ORDERED: diphenhydrAMINE HCL 50 MG CAPSULE PO PRN (20:22)
[2016-08-25] MEDS ORDERED: MAGNESIUM CITRATE 300 ML BOTTLE PO PRN (20:22)
[2016-08-25] MEDS ORDERED: NICOTINE POLACRILEX 2 MG GUM BUC PRN (20:22)
[2016-08-25] MEDS ORDERED: MAG HYDROX/AL HYDROX/SIMETH 30 ML UNIT-DOSE CUP PO PRN (20:22)
[2016-08-25] MEDS ORDERED: METHADONE HCL 10 MG TABLET (FOR DETOX USE ONLY) PO ONE ×2 (20:22→23:00)
[2016-08-25] MEDS ORDERED: P-EPHED 60MG/TRIPROLIDI 2.5MG TABLET PO PRN (20:22)
[2016-08-25] MEDS ORDERED: IBUPROFEN 400 MG TABLET (FP) PO PRN (20:22)
[2016-08-25] MEDS ORDERED: ACETAMINOPHEN 325 MG TABLET (FP) PO PRN (20:22)
[2016-08-25] MEDS ORDERED: hydrOXYzine PAMOATE 50 MG CAPSULE (FP) PO PRN (20:22)
[2016-08-25] MEDS ORDERED: MAGNESIUM HYDROX 2400MG/30ML ORAL SUSPENSION 30 ML CUP PO PRN (20:22)
[2016-08-25] MEDS ORDERED: MENTHOL/PHENOL 1 EACH UD MM PRN (20:22)
[2016-08-25] MEDS ORDERED: LOPERAMIDE HCL 2 MG CAPSULE PO PRN (20:22)
[2016-08-25] MEDS ORDERED: METHADONE HCL 10 MG TABLET (FOR DETOX USE ONLY) ONE (23:24)
[2016-08-25] MEDS: THIAMINE HCL 100 MG TABLET (FP) PO SCH (23:29)
[2016-08-25] MEDS: diazePAM 5 MG TABLET PO PRN (23:30)
--- NOTE | 2016-08-26 08:24 | EKG ---
Test Reason : Blood Pressure : / mmHG Vent. Rate : 055 BPM Atrial Rate : 055 BPM P-R Int : 168 ms QRS Dur : 096 ms QT Int : 452 ms P-R-T Axes : 050 077 062 degrees QTc Int : 432 ms SINUS BRADYCARDIA OTHERWISE NORMAL ECG WHEN COMPARED WITH ECG OF 17-JUN-2016 15:56, NO SIGNIFICANT CHANGE WAS FOUND Confirmed by AARON JONES MD ([id number]) on 08/26/2016 8:24:08 AM Referred By: Confirmed By:AARON JONES MD
[2016-08-26] MEDS ORDERED: METHADONE HCL 10 MG TABLET (FOR DETOX USE ONLY) PO ONE (10:00)
[2016-08-26 10:34] LABS: ALBUMIN 3.1 g/dl (3.4-5.0); ALK PHOS 130 U/L (45-117); ANION GAP 9 (8-16); BILIRUBIN,TOTAL 0.7 mg/dL (0.2-1.0); CALCIUM 8.2 mg/dL (8.5-10.1); CO2 24 mmol/L (21-32); COCKROFT - GAULT 98.27; CREATININE 0.7 mg/dL (0.7-1.3); GLUCOSE,RANDOM 83 mg/dL (74-106); SGOT/AST 56 U/L (15-37); SGPT/ALT 40 U/L (12-78); TOT PROT 6.7 g/dl (6.4-8.2)
[2016-08-26] MEDS: PRENATAL VITAMINS W/ FOLIC ACID TABLET (FP) PO SCH (10:41)
[2016-08-26] MEDS: NICOTINE 14 MG/24 HOURS TOPICAL PATCH TD SCH (10:42)
[2016-08-26] MEDS: diazePAM 5 MG TABLET PO PRN (10:42)
[2016-08-26 10:50] LABS: MCH 30.9 pg (25.7-33.7); MCHC 33.2 g/dl (32.0-35.9); MEAN CELL VOLUME 93.2 fl (80-96); PLATELET COUNT 75 K/MM3 (134-434); RDW 14.5 % (11.9-15.9)
--- NOTE | 2016-08-26 11:40 | PN ---
BHS COWS - Scale Resting Pulse: 1= [place] 81-100 Sweatin= Chills/Flushing Restless Observation: 3= Extraneous Movement Pupil Size: 2= Moderately Dilated Bone or Joint Aches: 4=Acute Joint/Muscle Pain Runny Nose/ Eye Tearin= Nasal Congestion GI Upset > 30mins: 1= Stomach Cramp Tremor Observation of Outstretched Hands: 2= Slight Tremor Visible Yawning Observation: 1= 1-2x During Session Anxiety or Irritability: 2=Irritable/Anxious Goose Flesh Skin: 0=Smooth Skin COWS Score: 18 BHS Progress Note (SOAP) Subjective: ANXIETY,CHILLS,IRRITABILITY, FATIGUE,INTERMITTENT SLEEP. Objective: 08/26/16 11:39 Vital Signs 08/26/16 08/26/16 06:56 10:37 Temperature 97.0 F L 96.8 F L Pulse Rate 81 78 Respiratory 16 18 Rate Blood Pressure 114/80 122/79 Laboratory Last Values WBC 4.0 K/mm3 (4.0-10.0) D 08/26/16 07:00 RBC 4.47 M/mm3 (4.00-5.60) 08/26/16 07:00 Hgb 13.8 GM/dL (11.7-16.9) D 08/26/16 07:00 Hct 41.6 % (35.4-49) D 08/26/16 07:00 MCV 93.2 fl (80-96) 08/26/16 07:00 MCHC 33.2 g/dl (32.0-35.9) 08/26/16 07:00 RDW 14.5 % (11.9-15.9) 08/26/16 07:00 Plt Count 75 K/MM3 (134-434) L 08/26/16 07:00 MPV 9.0 fl (7.5-11.1) 08/26/16 07:00 Sodium 141 mmol/L (136-145) 08/26/16 07:00 Potassium 4.0 mmol/L (3.5-5.1) 08/26/16 07:00 Chloride 108 mmol/L (98-107) H 08/26/16 07:00 Carbon Dioxide 24 mmol/L (21-32) D 08/26/16 07:00 Anion Gap 9 (8-16) 08/26/16 07:00 BUN 24 mg/dL (7-18) H D 08/26/16 07:00 Creatinine 0.7 mg/dL (0.7-1.3) D 08/26/16 07:00 Creat Clearance w eGFR > 60 (>60) 08/26/16 07:00 Random Glucose 83 mg/dL (74-106) 08/26/16 07:00 Calcium 8.2 mg/dL (8.5-10.1) L 08/26/16 07:00 Total Bilirubin 0.7 mg/dL (0.2-1.0) D 08/26/16 07:00 AST 56 U/L (15-37) H D 08/26/16 07:00 ALT 40 U/L (12-78) 08/26/16 07:00 Alkaline Phosphatase 130 U/L (45-117) H D 08/26/16 07:00 Total Protein 6.7 g/dl (6.4-8.2) 08/26/16 07:00 Albumin 3.1 g/dl (3.4-5.0) L D 08/26/16 07:00 Assessment: 08/26/16 11:40 WITHDRAWAL SX Plan: CONTINUE DETOX
--- NOTE | 2016-08-26 13:58 | CONSULT ---
[facility] Psychiatric Consult - Data Date of interview: 08/26/16 Admission source: [facility] Identifying data: Another admission to [facility] for this 56 y/o male seeking detox treatment on for heroin,cocaine (crack) and marijuana dependence.Patient is single,a father of one,domiciled,unemployed and supported on SSI benefits. Substance Abuse History: - Smoking Cessation. Smoking history: Current every day smoker. Have you smoked in the past 12 months: Yes. Aproximately how many cigarettes per day: 10. Cigars Per Day: 0. Hx Chewing Tobacco Use: No. Initiated information on smoking cessation: Yes. 'Breaking Loose' booklet given : 08/25/16. - Substance & Tx. History. Hx Alcohol Use: No. Hx Substance Use: Yes. Substance Use Type: Cocaine, Heroin. Hx Substance Use Treatment: Yes ( DETOX AND REHAB ). - Substances Abused. Heroin. Route: Injection. Frequency: Daily. Amount used: 2 BAGS. Age of first use: 21. Date of Last Use : 08/24/16. Cocaine. Route: Injection. Frequency: Daily. Amount used: $ 50. Age of first use: 25. Date of Last Use: 08/24/16. Confirmed by patient. Medical History: History of hepatitis C (treated in 2014),liver disease,HIV infection since 2000 (on ART medications),past treatment for gonorrhea and a history of right hip replacement in 2010. Psychiatric History: Extensive history of mental illness (onset of psychopathology at age 27).Diagnosed with Paranoid Schizophrenia.History of multiple psychiatric hospitalizations.Known to [facility] and [facility] in [facility]Maintained on depot haloperidol (100 mg IM every month) at the [facility] clinic in [facility].Most recent injection was dispensed last week, as per self-report.Patient denies history of suicide attempts. Physical/Sexual Abuse/Trauma History: Patient denies. Mental Status Exam - Mental Status Exam Alert and Oriented to: Time, Place, Person Cognitive Function: Good Patient Appearance: Disheveled Mood: Withdrawn Affect: Mood Congruent Patient Behavior: Fatigued, Cooperative Speech Pattern: Clear Voice Loudness: Normal Thought Process: Goal Oriented Thought Disorder: Not Present Hallucinations: Denies Suicidal Ideation: Denies Homicidal Ideation: Denies Insight/Judgement: Poor Sleep: Well Appetite: Poor, Weight loss Muscle strength/Tone: Normal Gait/Station: Normal Psychiatric Findings - Problem List ([place] 1, 2,3) (1) Cocaine dependence, uncomplicated Current Visit: Yes Status: Acute (2) Opioid dependence with withdrawal Current Visit: Yes Status: Acute (3) Nicotine dependence Current Visit: Yes Status: Acute Qualifiers: Nicotine product type: cigarettes Substance use status: in withdrawal Qualified Code(s): F17.213 - Nicotine dependence, cigarettes, with withdrawal (4) Paranoid schizophrenia Current Visit: Yes Status: Chronic (5) Clubbed fingers Current Visit: Yes Status: Chronic (6) HIV (human immunodeficiency virus infection) Current Visit: Yes Status: Chronic (7) History of hepatitis C Current Visit: Yes Status: Chronic (8) Weight loss Current Visit: Yes Status: Chronic - Initial Treatment Plan Initial Treatment Plan: Psychoeducation.Detoxification.Observation.
[2016-08-26] MEDS: THIAMINE HCL 100 MG TABLET (FP) PO SCH (22:47)
[2016-08-27] MEDS ORDERED: METHADONE HCL 5 MG TABLET (FOR DETOX USE ONLY) PO ONE (10:00)
[2016-08-27] MEDS: PRENATAL VITAMINS W/ FOLIC ACID TABLET (FP) PO SCH (10:42)
[2016-08-27] MEDS: diazePAM 5 MG TABLET PO PRN (10:43)
[2016-08-27] MEDS: NICOTINE 14 MG/24 HOURS TOPICAL PATCH TD SCH (10:55)
--- NOTE | 2016-08-27 12:28 | PN ---
BHS COWS - Scale Resting Pulse: 0= [place] 80 or Below Sweatin= Chills/Flushing Restless Observation: 3= Extraneous Movement Pupil Size: 2= Moderately Dilated Bone or Joint Aches: 4=Acute Joint/Muscle Pain Runny Nose/ Eye Tearin= Nasal Congestion GI Upset > 30mins: 1= Stomach Cramp Tremor Observation of Outstretched Hands: 1= Tremor [place], Not Seen Yawning Observation: 1= 1-2x During Session Anxiety or Irritability: 2=Irritable/Anxious Goose Flesh Skin: 0=Smooth Skin COWS Score: 16 BHS Progress Note (SOAP) Subjective: ANXIETY,IRRITABILITY,SWEATS/CHILLS,INTERMITTENT SLEEP Objective: 08/27/16 12:27 Vital Signs Temperature 97.1 F L 08/27/16 09:22 Pulse Rate 70 08/27/16 09:22 Respiratory Rate 18 08/27/16 09:22 Blood Pressure 105/71 08/27/16 09:22 O2 Sat by Pulse Oximetry (%) Laboratory Last Values WBC 4.0 K/mm3 (4.0-10.0) D 08/26/16 07:00 RBC 4.47 M/mm3 (4.00-5.60) 08/26/16 07:00 Hgb 13.8 GM/dL (11.7-16.9) D 08/26/16 07:00 Hct 41.6 % (35.4-49) D 08/26/16 07:00 MCV 93.2 fl (80-96) 08/26/16 07:00 MCHC 33.2 g/dl (32.0-35.9) 08/26/16 07:00 RDW 14.5 % (11.9-15.9) 08/26/16 07:00 Plt Count 75 K/MM3 (134-434) L 08/26/16 07:00 MPV 9.0 fl (7.5-11.1) 08/26/16 07:00 Sodium 141 mmol/L (136-145) 08/26/16 07:00 Potassium 4.0 mmol/L (3.5-5.1) 08/26/16 07:00 Chloride 108 mmol/L (98-107) H 08/26/16 07:00 Carbon Dioxide 24 mmol/L (21-32) D 08/26/16 07:00 Anion Gap 9 (8-16) 08/26/16 07:00 BUN 24 mg/dL (7-18) H D 08/26/16 07:00 Creatinine 0.7 mg/dL (0.7-1.3) D 08/26/16 07:00 Creat Clearance w eGFR > 60 (>60) 08/26/16 07:00 Random Glucose 83 mg/dL (74-106) 08/26/16 07:00 Calcium 8.2 mg/dL (8.5-10.1) L 08/26/16 07:00 Total Bilirubin 0.7 mg/dL (0.2-1.0) D 08/26/16 07:00 AST 56 U/L (15-37) H D 08/26/16 07:00 ALT 40 U/L (12-78) 08/26/16 07:00 Alkaline Phosphatase 130 U/L (45-117) H D 08/26/16 07:00 Total Protein 6.7 g/dl (6.4-8.2) 08/26/16 07:00 Albumin 3.1 g/dl (3.4-5.0) L D 08/26/16 07:00 RPR Titer Nonreactive (NONREACTIVE) 08/26/16 07:00 Assessment: 08/27/16 12:28 WITHDRAWAL SX Plan: CONTINUE DETOX
--- NOTE | 2016-08-27 12:32 | PN ---
S Progress Note (SOAP) Subjective: ANXIETY, SWEATS,CHILLS,TREMORS,INTERMITTENT SLEEP. Objective: 08/27/16 12:29 Vital Signs Temperature 97.1 F L 08/27/16 09:22 Pulse Rate 70 08/27/16 09:22 Respiratory Rate 18 08/27/16 09:22 Blood Pressure 105/71 08/27/16 09:22 O2 Sat by Pulse Oximetry (%) Laboratory Last Values WBC 4.0 K/mm3 (4.0-10.0) D 08/26/16 07:00 RBC 4.47 M/mm3 (4.00-5.60) 08/26/16 07:00 Hgb 13.8 GM/dL (11.7-16.9) D 08/26/16 07:00 Hct 41.6 % (35.4-49) D 08/26/16 07:00 MCV 93.2 fl (80-96) 08/26/16 07:00 MCHC 33.2 g/dl (32.0-35.9) 08/26/16 07:00 RDW 14.5 % (11.9-15.9) 08/26/16 07:00 Plt Count 75 K/MM3 (134-434) L 08/26/16 07:00 MPV 9.0 fl (7.5-11.1) 08/26/16 07:00 Sodium 141 mmol/L (136-145) 08/26/16 07:00 Potassium 4.0 mmol/L (3.5-5.1) 08/26/16 07:00 Chloride 108 mmol/L (98-107) H 08/26/16 07:00 Carbon Dioxide 24 mmol/L (21-32) D 08/26/16 07:00 Anion Gap 9 (8-16) 08/26/16 07:00 BUN 24 mg/dL (7-18) H D 08/26/16 07:00 Creatinine 0.7 mg/dL (0.7-1.3) D 08/26/16 07:00 Creat Clearance w eGFR > 60 (>60) 08/26/16 07:00 Random Glucose 83 mg/dL (74-106) 08/26/16 07:00 Calcium 8.2 mg/dL (8.5-10.1) L 08/26/16 07:00 Total Bilirubin 0.7 mg/dL (0.2-1.0) D 08/26/16 07:00 AST 56 U/L (15-37) H D 08/26/16 07:00 ALT 40 U/L (12-78) 08/26/16 07:00 Alkaline Phosphatase 130 U/L (45-117) H D 08/26/16 07:00 Total Protein 6.7 g/dl (6.4-8.2) 08/26/16 07:00 Albumin 3.1 g/dl (3.4-5.0) L D 08/26/16 07:00 RPR Titer Nonreactive (NONREACTIVE) 08/26/16 07:00 PLT 75 Assessment: 08/27/16 12:31 WITHDRAWAL SX THROMBOCYTOPENIA Plan: CONTINUE DETOX
[2016-08-27 20:22] LABS: URINE APPEARANCE CLEAR; URINE BILIRUBIN NEGATIVE (NEGATIVE); URINE BLOOD NEGATIVE (NEGATIVE); URINE COLOR YELLOW; URINE GLUCOSE (UA) NEGATIVE (NEGATIVE); URINE KETONE NEGATIVE (NEGATIVE); URINE LEUK ESTERASE NEGATIVE (NEGATIVE); URINE NITRITE NEGATIVE (NEGATIVE); URINE PROTEIN NEGATIVE (NEGATIVE); URINE UROBILINOGEN NEGATIVE E.U./dl (0.2-1.0)
[2016-08-27] MEDS: THIAMINE HCL 100 MG TABLET (FP) PO SCH (22:55)
[2016-08-28] MEDS ORDERED: METHADONE HCL 5 MG TABLET (FOR DETOX USE ONLY) PO ONE (10:00)
[2016-08-28] MEDS: PRENATAL VITAMINS W/ FOLIC ACID TABLET (FP) PO SCH (10:00)
[2016-08-28] MEDS: NICOTINE 14 MG/24 HOURS TOPICAL PATCH TD SCH (10:01)
--- NOTE | 2016-08-28 11:23 | PN ---
BHS Progress Note (SOAP) Subjective: Sweating,interrupted sleep,restless Objective: 08/28/16 11:21 Vital Signs - 8 hr 08/28/16 08/28/16 08/28/16 03:37 06:45 09:23 Temperature 97.6 F 97.4 F L Pulse Rate 74 88 Respiratory 18 18 18 Rate Blood Pressure 94/57 94/61 Laboratory Tests 08/26/16 08/26/16 08/26/16 07:00 07:00 07:00 WBC 4.0 D RBC 4.47 Hgb 13.8 D Hct 41.6 D MCV 93.2 MCHC 33.2 RDW 14.5 Plt Count 75 L MPV 9.0 Sodium 141 Potassium 4.0 Chloride 108 H Carbon Dioxide 24 D Anion Gap 9 BUN 24 H D Creatinine 0.7 D Creat Clearance w eGFR > 60 Random Glucose 83 Calcium 8.2 L Total Bilirubin 0.7 D AST 56 H D ALT 40 Alkaline Phosphatase 130 H D Total Protein 6.7 Albumin 3.1 L D Urine Color Urine Appearance Urine pH Ur Specific [place] Urine Protein Urine Glucose (UA) Urine Ketones Urine Blood Urine Nitrite Urine Bilirubin Urine Urobilinogen Ur Leukocyte Esterase RPR Titer Nonreactive 08/27/16 19:45 WBC RBC Hgb Hct MCV MCHC RDW Plt Count MPV Sodium Potassium Chloride Carbon Dioxide Anion Gap BUN Creatinine Creat Clearance w eGFR Random Glucose Calcium Total Bilirubin AST ALT Alkaline Phosphatase Total Protein Albumin Urine Color Yellow Urine Appearance Clear Urine pH 6.0 Ur Specific [place] 1.014 Urine Protein Negative Urine Glucose (UA) Negative Urine Ketones Negative Urine Blood Negative Urine Nitrite Negative Urine Bilirubin Negative Urine Urobilinogen Negative Ur Leukocyte Esterase Negative RPR Titer labs noted Assessment: 08/28/16 11:22 Withdrawal sx. Plan: Continue detox
--- NOTE | 2016-08-28 11:27 | PN ---
BHS Progress Note (SOAP) Subjective: ANXIETY, SWEATS, FATIGUE. Objective: 08/28/16 11:25 Vital Signs Temperature 97.4 F L 08/28/16 09:23 Pulse Rate 88 08/28/16 09:23 Respiratory Rate 18 08/28/16 09:23 Blood Pressure 94/61 08/28/16 09:23 O2 Sat by Pulse Oximetry (%) Assessment: 08/28/16 11:26 WITHDRAWAL SX Plan: CONTINUE DETOX
[2016-08-28] MEDS: THIAMINE HCL 100 MG TABLET (FP) PO SCH (22:45)
[2016-08-29 06:28] VITALS: BP 96/64; PULSE 67; TEMP 97.7
[2016-08-29] MEDS ORDERED: METHADONE HCL 10 MG TABLET (FOR DETOX USE ONLY) PO ONE (10:00)
[2016-08-29] MEDS: NICOTINE 14 MG/24 HOURS TOPICAL PATCH TD SCH (10:52)
[2016-08-29] MEDS: PRENATAL VITAMINS W/ FOLIC ACID TABLET (FP) PO SCH (10:52)
--- NOTE | 2016-08-29 14:46 | DS ---
[facility] Detox Discharge Summary Admission Date: 08/25/16 Discharge Date: 08/29/16 - History Present History: Cocaine Dependence, Opioid Dependence Additional Comments: ADVISED PATIENT TO FOLLOW-UP WITH [facility] FOR GENERAL MEDICAL ASSESSMENT. Pertinent Past History: History of Liver Ca, HIV +, Hep C, COPD, Schizophrenia. - Physical Exam Results Vital Signs: Vital Signs Temperature 97.7 F 08/29/16 06:00 Pulse Rate 67 08/29/16 06:00 Respiratory Rate 18 08/29/16 06:00 Blood Pressure 96/64 08/29/16 06:00 O2 Sat by Pulse Oximetry (%) Pertinent Admission Physical Exam Findings: WITHDRAWAL SYMPTOMS. Laboratory Last Values WBC 4.0 K/mm3 (4.0-10.0) D 08/26/16 07:00 RBC 4.47 M/mm3 (4.00-5.60) 08/26/16 07:00 Hgb 13.8 GM/dL (11.7-16.9) D 08/26/16 07:00 Hct 41.6 % (35.4-49) D 08/26/16 07:00 MCV 93.2 fl (80-96) 08/26/16 07:00 MCHC 33.2 g/dl (32.0-35.9) 08/26/16 07:00 RDW 14.5 % (11.9-15.9) 08/26/16 07:00 Plt Count 75 K/MM3 (134-434) L 08/26/16 07:00 MPV 9.0 fl (7.5-11.1) 08/26/16 07:00 Sodium 141 mmol/L (136-145) 08/26/16 07:00 Potassium 4.0 mmol/L (3.5-5.1) 08/26/16 07:00 Chloride 108 mmol/L (98-107) H 08/26/16 07:00 Carbon Dioxide 24 mmol/L (21-32) D 08/26/16 07:00 Anion Gap 9 (8-16) 08/26/16 07:00 BUN 24 mg/dL (7-18) H D 08/26/16 07:00 Creatinine 0.7 mg/dL (0.7-1.3) D 08/26/16 07:00 Creat Clearance w eGFR > 60 (>60) 08/26/16 07:00 Random Glucose 83 mg/dL (74-106) 08/26/16 07:00 Calcium 8.2 mg/dL (8.5-10.1) L 08/26/16 07:00 Total Bilirubin 0.7 mg/dL (0.2-1.0) D 08/26/16 07:00 AST 56 U/L (15-37) H D 08/26/16 07:00 ALT 40 U/L (12-78) 08/26/16 07:00 Alkaline Phosphatase 130 U/L (45-117) H D 08/26/16 07:00 Total Protein 6.7 g/dl (6.4-8.2) 08/26/16 07:00 Albumin 3.1 g/dl (3.4-5.0) L D 08/26/16 07:00 Urine Color Yellow 08/27/16 19:45 Urine Appearance Clear 08/27/16 19:45 Urine pH 6.0 (5.0-8.0) 08/27/16 19:45 Ur Specific [place] 1.014 (1.001-1.035) 08/27/16 19:45 Urine Protein Negative (NEGATIVE) 08/27/16 19:45 Urine Glucose (UA) Negative (NEGATIVE) 08/27/16 19:45 Urine Ketones Negative (NEGATIVE) 08/27/16 19:45 Urine Blood Negative (NEGATIVE) 08/27/16 19:45 Urine Nitrite Negative (NEGATIVE) 08/27/16 19:45 Urine Bilirubin Negative (NEGATIVE) 08/27/16 19:45 Urine Urobilinogen Negative E.U./dl (0.2-1.0) 08/27/16 19:45 Ur Leukocyte Esterase Negative (NEGATIVE) 08/27/16 19:45 RPR Titer Nonreactive (NONREACTIVE) 08/26/16 07:00 LABS NOTED. - Treatment Hospital Course: Detoxed Safely - Medication Discharge Medications: Ambulatory Orders Emtricitab/Rilpivirine/Tenofov [Complera Tablet -] 1 each PO DAILY 01/01/15 Cyclobenzaprine HCl [Flexeril -] 10 mg PO Q12H 01/14/16 Gabapentin [Neurontin -] 300 mg PO Q12H 01/14/16 - Diagnosis (1) Cocaine dependence, uncomplicated Status: Acute (2) Nicotine dependence Status: Chronic Qualifiers: Nicotine product type: cigarettes Substance use status: in withdrawal Qualified Code(s): F17.213 - Nicotine dependence, cigarettes, with withdrawal (3) Opioid dependence with withdrawal Status: Acute (4) Cancer of liver Status: Chronic Qualifiers: Liver malignancy type: unspecified liver malignancy Qualified Code(s ): C22.9 - Malignant neoplasm of liver, not specified as primary or secondary (5) Clubbed fingers Status: Chronic (6) HIV (human immunodeficiency virus infection) Status: Chronic (7) Hepatitis C Status: Chronic Qualifiers: Viral hepatitis chronicity: chronic Hepatic coma status: without hepatic coma Qualified Code(s): B18.2 - Chronic viral hepatitis C (8) Schizophrenia Status: Chronic Qualifiers: Schizophrenia type: unspecified Qualified Code(s): F20.9 - Schizophrenia, unspecified (9) Tardive dyskinesia Status: Chronic (10) Weight loss Status: Chronic (11) Paranoid schizophrenia Status: Chronic - AMA Did Patient Leave Against Medical Advice: Yes (PATIENT DID NOT WANT TO STAY TO COMPLETE DETOX REGIM[facility].)
[2016-08-30] MEDS ORDERED: METHADONE HCL 5 MG TABLET (FOR DETOX USE ONLY) PO ONE (06:00)
== END 2016-08-29 13:15 | disposition left against medical advice (07) | DRG 770 ==
LOC: YASAS 16:24 → Y3N 20:55
PROVIDERS: ADMIT Internal Medicine; ATTEND Internal Medicine
PROC: HZ2ZZZZ Detoxification Services for Substance Abuse Treatment (ICD-10-PCS; principal; 2016-08-29)
DX: F11.23 Opioid dependence with withdrawal (principal); F14.20 Cocaine dependence, uncomplicated; F17.210 Nicotine dependence, cigarettes, uncomplicated; F20.9 Schizophrenia, unspecified; F20.0 Paranoid schizophrenia; G24.01 Drug induced subacute dyskinesia; J44.9 Chronic obstructive pulmonary disease, unspecified; Z21 Asymptomatic human immunodeficiency virus [HIV] infection status; C22.9 Malignant neoplasm of liver, not specified as primary or secondary; B18.2 Chronic viral hepatitis C; R68.3 Clubbing of fingers; R63.4 Abnormal weight loss; Z68.20 Body mass index [BMI] 20.0-20.9, adult
CPT/HCPCS: 36415; 80053; 81003; 85027; 86593; 93005; 93010